=== PATIENT | male | born 1975 | race Hispanic/Latino ===

== ENCOUNTER 2016-07-10 10:11 | Day surgery (SDC) | payer OTHER ==
[2016-07-10] MEDS ORDERED: 1/2 NS 500 ML ONE (10:47)
[2016-07-10 12:56] LABS: HEMATOCRIT 29.6 % (42.0-52.0); HEMOGLOBIN 9.3 g/dL (14.0-18.0); MCH 30.4 PG (27-31); MCHC 31.4 g/dL (33-37); MCV 96.7 FL (81-99); MPV 8.2 FL (7.4-10.4); RBC 3.06 XMIL (4.7-6.1)
[2016-07-10 13:07] LABS: CALCIUM 9.2 mg/dL (8.8-10.2); POTASSIUM 4.7 mmol/L (3.5-5.1)
[2016-07-10] MEDS ORDERED: D50W SYRINGE ONE ×2 (13:37→16:41)
[2016-07-10] MEDS: KEFZOL 1 GM/D5W 50 ML ONE ×2 (13:43→14:43)
[2016-07-10] MEDS ORDERED: KEFZOL ONE (14:27)
[2016-07-10] MEDS ORDERED: HEPARIN ONE (14:27)
[2016-07-10] MEDS ORDERED: XYLOCAINE 1%/EPI 1:100,000 ONE (14:27)
[2016-07-10] MEDS ORDERED: NS 1,000 ML ONE ×2 (14:27→14:29)
--- NOTE | 2016-07-10 14:33 | EKG Report ---
Test Performed on : 07/10/2016 10:43:48 AM Test Reason : PER DR ORDER Blood Pressure : / mmHG Vent. Rate : 077 BPM Atrial Rate : 077 BPM P-R Int : 180 ms QRS Dur : 094 ms QT Int : 402 ms P-R-T Axes : 070 034 064 degrees QTc Int : 454 ms Normal sinus rhythm. Normal ECG When compared with ECG of 19-MAR-2016 09:18, No significant change was found Confirmed by Nimesh Murillo MD ([id number]) on 07/11/2016 9:43:06 PM
[2016-07-10] MEDS ORDERED: DIPRIVAN 1% ONE (16:57)
[2016-07-10] MEDS ORDERED: FENTANYL ONE (16:57)
[2016-07-10] MEDS ORDERED: NORCO-5 PO PRN (17:45)
[2016-07-10 18:24] VITALS: BP 109/67
--- NOTE | 2016-07-10 22:53 | OPERATIVE NOTE ---
PROCEDURE DATE: 07/10/2016 PROCEDURE PERFORMED: 1. Construction of translocated right brachiocephalic arteriovenous fistula . 2. Excisional debridement right lateral malleolar ulcer skin and subcutaneous tissue 1 x 1.5 cm. 3. Excisional debridement right heel ulcer (skin and subcutaneous tissue; 5x5cm) SURGEON: Daniel Ro MD. POWERHOUSE ELECTRICIAN APPRENTICE: Iram Alexander. PREOP DIAGNOSES: 1. Chronic kidney disease 5. 2. Right heel and ankle decubitus. POSTOP DIAGNOSES: 1. Chronic kidney disease 5. 2. Right heel and ankle decubitus. DESCRIPTION OF PROCEDURE: Satisfactory general anesthesia achieved. Right arm was prepped and draped in a sterile fashion. We made a curvilinear incision above the antecubital crease. We dissected down to the brachial artery, it was noted to be red the diseased. We identified the cephalic vein that comes into the antecubital fossa. We gave the patient 3000 units of heparin systemically. We surrounded the artery proximally and distally with vessel loops. We ligated the vein at a branch in the antecubital fossa and transected the branches. We then opened the vein through the branches to spatulate it. We mobilized and swung it over to the artery. We then incised the artery with 11 blade and extended slightly with the Soto scissors. We used a 3-1/2 punch. We then constructed the anastomosis using 7-0 Prolene stitches under 2.5 loupe magnification. Flow was established into the fistula and a thrill was palpated. Hemostasis was satisfactory. We then closed the subcutaneous tissue with interrupted 3-0 Polysorb. The skin was closed with a 4-0 Polysorb subcuticular stitch. Sterile OpSite dressing was applied. We then turned our attention to the right foot. We prepped and draped it in a sterile fashion. We sharply excised the skin and subcutaneous tissue eschar from the right lateral malleolus. It measured 1 x 1.5 cm. The heel ulcer was then excised to viable subcutaneous tissues so we excised skin and subcutaneous tissue to the extent of 5 x 5 cm. The heel bled satisfactorily, the ankle did not. There was also ulceration on the dorsum of the ankle but did not require debridement. We then achieved satisfactory hemostasis electrocautery on the heel and then placed DuoDERM on the wounds to keep it moist. We then wrapped that with a Kerlix. She tolerated the procedure satisfactorily, sent to the recovery room in satisfactory condition. MTDD
[2016-07-11] MEDS ORDERED: NEO-SYNEPHRINE ONE (09:56)
[2016-07-11] MEDS ORDERED: ZOFRAN ONE (09:56)
[2016-07-11] MEDS ORDERED: HEPARIN ONE (09:56)
[2016-07-11] MEDS ORDERED: SODIUM CHLORIDE 0.9% 20 ML ONE (09:56)
[2016-07-11] MEDS ORDERED: PIGGYBACK SET 7393 ONE (09:57)
[2016-07-11] MEDS ORDERED: NS 250 ML ONE (09:57)
[2016-07-11] MEDS ORDERED: ROBINUL ONE (09:57)
== END 2016-07-10 18:05 ==
LOC: OR 10:11
PROVIDERS: ATTEND Surgery
DX: I12.0 Hypertensive chronic kidney disease with stage 5 chronic kidney disease or end stage renal disease (principal); N18.5 Chronic kidney disease, stage 5; L89.519 Pressure ulcer of right ankle, unspecified stage; L89.619 Pressure ulcer of right heel, unspecified stage; Z89.422 Acquired absence of other left toe(s); I69.991 Dysphagia following unspecified cerebrovascular disease; I69.951 Hemiplegia and hemiparesis following unspecified cerebrovascular disease affecting right dominant side
CPT/HCPCS: 80048; 82948; 85027; 93005; 93010; J0690; J1644; J2370; J2405; J3010; J7030; J7050

== ENCOUNTER 2016-08-31 12:30 | Inpatient (IN) ==
[2016-08-31 10:59] LABS: HEMATOCRIT 32.8 % (42.0-52.0); HEMOGLOBIN 10.2 g/dL (14.0-18.0); MCH 29.7 PG (27-31); MCHC 31.1 g/dL (33-37); MCV 95.6 FL (81-99); MPV 8.6 FL (7.4-10.4); RBC 3.43 XMIL (4.7-6.1)
[2016-08-31 11:12] LABS: CALCIUM 8.6 mg/dL (8.8-10.2); POTASSIUM 2.9 mmol/L (3.5-5.1)
[~2016-08-31 12:30] MED LIST: 1/2 NS 500 ML ONE; KEFZOL 1 GM/D5W 1 GM/50 ML IVPB ONE
[2016-08-31] MEDS: MORPHINE ONE ×2 (13:32→14:55)
[2016-08-31] MEDS ORDERED: DIPRIVAN 1% ONE (13:32)
[2016-08-31] MEDS ORDERED: XYLOCAINE-MPF 2% ONE (13:50)
[2016-08-31] MEDS ORDERED: NUT TX IMPAIRED RENAL FXN SOY PEG SCH (15:27)
[2016-08-31] MEDS ORDERED: ZOFRAN IV PRN (15:27)
[2016-08-31] MEDS ORDERED: BLISTEX MEDICATED BERRY LIP BALM TOP PRN (15:27)
[2016-08-31] MEDS ORDERED: TYLENOL PO PRN (15:56)
[2016-08-31] MEDS ORDERED: DUONEB (A & A) INH PRN (16:01)
--- NOTE | 2016-08-31 16:22 | EKG Report ---
Test Performed on : 08/31/2016 4:06:55 PM Test Reason : tachycardia Blood Pressure : / mmHG Vent. Rate : 080 BPM Atrial Rate : 080 BPM P-R Int : 162 ms QRS Dur : 088 ms QT Int : 392 ms P-R-T Axes : 082 087 081 degrees QTc Int : 452 ms Normal sinus rhythm. Normal ECG When compared with ECG of 10-JUL-2016 10:43, No significant change was found Confirmed by Annemarie ROBERTS, Imtiaz Jorgensen ([id number]) on 09/02/2016 2:11:34 PM
--- NOTE | 2016-08-31 16:44 | OPERATIVE NOTE ---
PROCEDURE DATE: 08/31/2016 PROCEDURE: Excisional debridement infected right below-knee stump including skin, subcutaneous fat and muscle greater than 20 square centimeters. SURGEON: Daniel Ro MD. FELT TIPPING MACHINE TENDER: Taarh. PREOPERATIVE DIAGNOSIS: Infected right below-knee stump. POSTOPERATIVE DIAGNOSIS: Infected right below-knee stump. DESCRIPTION OF PROCEDURE: Satisfactory general anesthesia was achieved. The right stump was prepped and draped in a sterile fashion. We had taken the polina out prior to prepping and draping the stump. We sharply debrided the skin. We also debrided the subcutaneous fat and the right muscle or necrotic muscle in the posterior flap. We continued to debride that and remove the infarcted tissue until we got back to what appeared to be viable tissue. The tibia was exposed with the debridement. It became evident that he probably would not be able to heal this. So, we simply after debriding back to viable tissue throughout the extent of the wound which is probably 8 x 5 cm, we then packed it with Betadine-impregnated gauze followed by sterile 4 x 4s, followed by Kerlix, followed by a 6 inch LUCRECIA. She tolerated it well. Was sent to the recovery room in satisfactory condition. cc: Daniel Ro MD
[2016-08-31] MEDS ORDERED: KLOR-CON PO ONE (16:46)
--- NOTE | 2016-08-31 17:15 | Diag Imaging Result Document ---
PROCEDURE NAME: CHEST-PORTABLE - 08/31/2016 PORTABLE CHEST X-RAY: COMPARISON: 04/20/2016. FINDINGS: There is a left-sided dialysis catheter in good position with the distal tip at the cavoatrial junction. There is some strandy atelectasis in the lung bases. No significant infiltrates. No pneumothorax or large effusion. Heart size is grossly normal. IMPRESSION: No acute disease.
[2016-08-31] MEDS: HUMULIN R SUBQ SCH ×2 (17:46→21:07)
[2016-08-31] MEDS ORDERED: KEFZOL 1 GM in NS 50 ML IV SCH ×2 (18:00→19:30)
--- NOTE | 2016-08-31 20:04 | CONSULTATION ---
DATE OF CONSULTATION: 08/31/2016 REASON FOR ADMISSION: I and D of right below the knee amputation performed on 08/01/2016. REASON FOR CONSULTATION: Assistance with end-stage renal disease and medical management. CONSULTING PHYSICIAN: Daniel Ro MD. HISTORY OF PRESENT ILLNESS: Mr. Womack is a 41-year-old, white male who is actually known to our outpatient services for hemodialysis at the [facility]. The patient has been transferred home after being in a [facility] during his last hospitalization. On 08/01/2016, the patient had a right fvtwl-zok-kuyu amputation per Dr. Ro. This has not been healing well and he had an I and D performed today. The patient denies any chest pain. No increased work of breathing. He has no nausea or vomiting. No diarrhea. He does have pain to his right lower extremity and trace swelling is noted. No fever or chills. PAST MEDICAL HISTORY: End-stage renal disease with hemodialysis at the [facility] on Sunday, Sunday, Sunday. Multiple sclerosis. Cerebrovascular accident with left- sided weakness. Hypertension. Gastroesophageal reflux disease. History of ischemic extremity on the left status post left BKA in 2016, right BKA in 2017. History of nicotine dependence. Diabetes mellitus type 2. Hip fracture approximately 1 year ago. PAST SURGICAL HISTORY: Hip fracture repair to the left. Left below the knee amputation in 2015. 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 Bilateral corneal transplant. PEG tube placement x2. SOCIAL HISTORY: Patient is , he lives with his spouse. He is back in the [place] area. He denies alcohol or illicit drug use. He continues to smoke with the assistance of his family. PAST MEDICAL HISTORY: Negative for renal disease. CURRENT ALLERGIES: No known drug allergies. HOME MEDICATIONS: Listed as Lipitor, citalopram, Tresiba FlexTouch, losartan, [place], Rocaltrol, Ferrlecit, Aranesp, IV iron as indicated at the outpatient clinic. REVIEW OF SYSTEMS: Review of systems x 10 with pertinent positives listed above in the HPI. MOST RECENT VITAL SIGNS: Temperature 97.7 degrees, blood pressure 131/72, heart rate 88, respirations 18, he is on room air, last recorded saturation is 99%. He has had 100 in, he has had estimated blood loss of 2, otherwise no void with dialysis assist. LABS: Sodium of 136, potassium 2.9, chloride 92, CO2 30, BUN 9, creatinine 1.9 , glucose 180, anion gap 14, calcium 8.6, white count 11.91, hemoglobin 10.2, hematocrit 32.8 with a platelet count of 492,000. Patient has anaerobic and Gram stain cultures of his I and D to the right BKA currently pending. PHYSICAL EXAMINATION: General: This is a 41-year-old, white male who appears chronically ill, in no acute distress. Skin: Warm and dry. HEENT: Normocephalic, atraumatic. Conjunctivae pale, ALAN. Mucous membranes are dry. Neck: Supple. Trachea midline. No JVD. Cardiovascular: Regular rate and rhythm. He has a soft murmur noted otherwise no gallop. Lungs : Clear to auscultation anteriorly, equal excursion on O2. Abdomen: Round, soft, nontender. Positive PEG tube to the left lower quadrant. This is dry and intact, currently clamped. Genitourinary: Not inspected. Minimal void with dialysis assist. The patient is currently wearing an adult diaper. Extremities: He has a dressing to the right BKA, no edema is present. The left is dry and intact. His hands currently have nonhealing wounds with some eschar noted to his right hand on the middle 3 fingers, no drainage present. Neurological: He is alert and oriented x2. ASSESSMENT AND PLAN: 1. End-stage renal disease. Patient is due for his routine dialysis treatment in the a.m. 2. Electrolytes. Patient has hypokalemia. We will order replacement therapy this evening with correction on dialysis in the morning and repeat labs. 3. Acid-base balance and anemia. These are stable. 4. Status postop day #1 for I and D to right below knee amputation. This is followed by Dr. Ro. He is on renal dosed antibiotics. I would like to thank you for allowing us to follow with this patient. Data reviewed, discussed with Abrahan Ortega on 08/31/16. I agree with the above assessment and plan of care. rg Dictated by MEGAN Kruse for Xander Montero MD cc: MEGAN Kruse MD Robert C. Walker, MD [facility] VALLEY HOSPITALFredy
[2016-08-31] MEDS: PERIDEX MT SCH (20:58)
[2016-08-31] MEDS: HUMULIN N SUBQ SCH (21:08)
[2016-08-31] MEDS: NORCO-10 PO PRN (21:08)
[2016-09-01 06:35] LABS: MANUAL DIFF NEEDED? NO
[2016-09-01 06:38] LABS: BASO% 0.3 % (0.0-0.8); EOS# 0.18 X1000 (0.0-0.7); HEMATOCRIT 31.1 % (42.0-52.0); HEMOGLOBIN 9.4 g/dL (14.0-18.0); LYMPH# 1.56 X1000 (1.2-3.4); LYMPH% 17.3 % (20.5-51.1); MCH 29.1 PG (27-31); MCHC 30.2 g/dL (33-37); MCV 96.3 FL (81-99); MONO# 1.16 X1000 (0.11-0.59); MONO% 12.8 % (1.7-9.3); MPV 8.5 FL (7.4-10.4); NEUT% 67.6 % (42.2-75.2); PLT 520 X1000 (130-400); RBC 3.23 XMIL (4.7-6.1)
[2016-09-01] MEDS: PROTONIX IV SCH (06:46)
[2016-09-01] MEDS: HUMULIN R SUBQ SCH ×4 (06:47→21:38)
[2016-09-01 06:59] LABS: ALBUMIN 2.6 g/dL (3.5-5.0); CALCIUM 8.7 mg/dL (8.8-10.2); POTASSIUM 4.3 mmol/L (3.5-5.1)
[2016-09-01] MEDS ORDERED: HEPARIN IV PRN (07:00)
[2016-09-01] MEDS ORDERED: NS 2,000 ML MISC PRN (07:00)
[2016-09-01] MEDS ORDERED: TIGHT: 0.2 ML/HR MISC PRN (07:00)
[2016-09-01] MEDS ORDERED: HEPARIN ONE (08:53)
[2016-09-01] MEDS ORDERED: NS 2,000 ML ONE (08:53)
[2016-09-01] MEDS ORDERED: KEFZOL 1 GM in NS 50 ML IV SCH (09:00)
[2016-09-01] MEDS ORDERED: NON-FORMULARY BULK MED PEG SCH (09:00)
[2016-09-01] MEDS: VANCOMYCIN 1 GM/NS 1 GM/250 ML IVPB IV SCH (12:54)
--- NOTE | 2016-09-01 13:52 | PROGRESS NOTE ---
DATE: 09/01/2016 SUBJECTIVE: Patient currently undergoing hemodialysis. He is in no acute distress. OBJECTIVE: Vital signs: Temperature 98.4 degrees, pulse 74, respiratory rate 18, blood pressure 125/64, intake 220 mL, output 150 mL. General: Middle-aged gentleman resting in bed. He appears older than stated age, chronically ill-appearing. HEENT: Normocephalic , atraumatic. Oral mucosa moist. Neck: Supple. Trachea midline. Cardiovascular: Regular rate and rhythm. Systolic murmur noted. Pulmonary: Equal excursion. He is clear bilaterally. Abdomen: Is soft, flat positive bowel sounds with a PEG. Extremities: Dressing right BKA, no edema. Left BKA noted, no drainage, no wound. Neuro: Awake and alert. LAB DATA: WBC of 9.0, hemoglobin 9.4. Sodium 136, potassium 4.3, CO2 28, BUN 16, creatinine 2.5. ASSESSMENT AND PLAN: 1. End-stage renal disease management. Today is his routine dialysis day. He is dialyzing on a 2 K bath with a ultrafiltration goal of 2.1 L. Continue his routine treatment while in the hospital. 2. Electrolytes, acid-base balance, addressed dialysis. 3. Anemia stable. 4. Status post incision and drainage right below-knee amputation followed by primary and surgery. 5. Will consult palliative care for goals assessment. Seen, data reviewed, discussed with Fahad Feldman on 09/01/16. I agree with the above assessment and plan of care. rg Dictated by MEGAN Todd for Xander Montero MD cc: MD Carrie Kerr MD MTDD
[2016-09-01] MEDS: HUMULIN N SUBQ SCH ×2 (16:03→21:37)
[2016-09-01] MEDS: PERIDEX MT SCH ×2 (16:04→20:32)
--- NOTE | 2016-09-01 16:06 | CONSULTATION ---
DATE OF CONSULTATION: 09/01/2016 REASON FOR CONSULTATION: Management of diabetes mellitus. CONSULTING PHYSICIAN: Dr. Daniel Ro HISTORY OF PRESENT ILLNESS: Mr. Womack is a 41-year-old male with a history of end-stage renal disease on hemodialysis, multiple sclerosis, history of CVA, and a recent right zbyca-ztr-xbay amputation performed last month. He was admitted today to undergo I and D of the right below-the- knee amputation site. The patient is doing well following the procedure. He currently denies having any pain at this time. He also denies having chest pain, shortness of breath, headache or dizziness. He denies having any GI complaints. He is currently being dialyzed at this time. PAST MEDICAL HISTORY: 1. End-stage renal disease on hemodialysis. Sunday, Sunday, and Sunday. 2. GERD. 3. Multiple sclerosis. 4. History of cerebrovascular accident with left hemiparesis. 5. Hypertension. 6. Diabetes mellitus type 2. 7. Tobacco dependence. 8. Peripheral artery disease. PAST SURGICAL HISTORY: 1. Right uzkem-yoj-vwbv amputation performed on 08/01/2016. 2. Left mckhh-mrd-ocrr amputation in 2015. 3. PEG tube placement x2. 4. Bilateral corneal transplant. 5. Left hip repair. FAMILY HISTORY: Noncontributory. SOCIAL HISTORY: The patient is and lives at home with his . The patient does smoke cigarettes. He denies alcohol or illicit drug use. ALLERGIES: No known drug allergies. HOME MEDICATIONS: 1. Humalog before meals. 2. NPH 20 units subcutaneous twice a day. 3. Multivitamin 5 mg via PEG daily. REVIEW OF SYSTEMS: All other review of systems are negative. Please refer to the history of present illness for pertinent positives and negatives. PHYSICAL EXAMINATION: Vital Signs: Temperature 98.3 degrees, blood pressure 129/82, heart rate 68, respirations 16, O2 saturations 97% on room air. General: This is a chronically ill- appearing male, sitting in bed, in no acute distress. Head: Normocephalic, atraumatic. Neck: Supple. No JVD. No lymphadenopathy. Heart: S1, S2 normal. Regular rate and rhythm. Lungs: Clear to auscultation bilaterally. No wheezing. No rales. No rhonchi. Abdomen: Positive bowel sounds. Soft, nontender, nondistended. Extremities: Right asljv-qso-lwca amputation site is wrapped in a dressing. The left BKA site is clean and dry. Neurologic: The patient is alert and oriented x2. LABORATORY DATA: White blood cell count 9, hemoglobin 9.4, hematocrit 31, platelets 520,000. Sodium 136, potassium 4.3, chloride 97, CO2 28, BUN 16, creatinine 2.5, glucose 101, calcium 8.7, albumin 2.6. Chest x-ray, no acute disease. ASSESSMENT AND PLAN: 1. Status post excisional debridement of infected right wzjaa-tgx-cylo amputation stump. The patient is on IV antibiotics. Further management as per the general surgeon. 2. End-stage renal disease. The patient is being dialyzed today. 3. Uncontrolled insulin-dependent diabetes mellitus. The patient was noted to be hypoglycemic this morning with a blood sugar of 39. We will need to monitor the patient' s blood sugars closely. He is currently on NPH 20 units twice a day. 4. Hypertension. Controlled. 5. History of cerebrovascular accident. Aware. 6. GI prophylaxis. Continue on Protonix. 7. Anemia of chronic disease. The patient's hemoglobin and hematocrit are stable. cc: MD Daniel Pavon MD MTDD
[2016-09-01] MEDS: BUPRENEX IV PRN (20:32)
[2016-09-01] MEDS: NORCO-10 PO PRN (21:37)
[2016-09-02] MEDS: NORCO-10 PO PRN ×2 (03:22→09:15)
[2016-09-02] MEDS: PROTONIX IV SCH (06:05)
[2016-09-02] MEDS: HUMULIN R SUBQ SCH ×4 (06:05→20:53)
[2016-09-02 06:37] LABS: MANUAL DIFF NEEDED? NO
[2016-09-02 06:48] LABS: BASO% 0.2 % (0.0-0.8); EOS# 0.17 X1000 (0.0-0.7); EOS% 1.9 % (0.0-10.0); HEMATOCRIT 31.1 % (42.0-52.0); HEMOGLOBIN 9.3 g/dL (14.0-18.0); IMM GRAN# 0.04 X1000 (0.0-0.04); IMM GRAN% 0.5 % (0.0-0.5); LYMPH# 1.49 X1000 (1.2-3.4); MCH 29.3 PG (27-31); MCHC 29.9 g/dL (33-37); MCV 98.1 FL (81-99); MONO# 1.04 X1000 (0.11-0.59); MONO% 11.9 % (1.7-9.3); MPV 8.5 FL (7.4-10.4); NEUT% 68.5 % (42.2-75.2); PLT 522 X1000 (130-400); RBC 3.17 XMIL (4.7-6.1)
[2016-09-02 07:06] LABS: ALBUMIN 2.6 g/dL (3.5-5.0); CALCIUM 8.5 mg/dL (8.8-10.2); POTASSIUM 3.8 mmol/L (3.5-5.1)
[2016-09-02] MEDS: PERIDEX MT SCH ×2 (09:08→20:54)
[2016-09-02] MEDS: HUMULIN N SUBQ SCH ×2 (09:10→20:52)
--- NOTE | 2016-09-02 14:00 | PROGRESS NOTE ---
DATE: 09/02/2016 SUBJECTIVE: Patient resting in bed. He underwent dialysis yesterday without difficulty. OBJECTIVE: Vital Signs: Temperature 97.6 degrees, pulse 63, respiratory rate 18, blood pressure 122/52, intake not measured, output 2.6 L on dialysis. PHYSICAL EXAMINATION: General: Chronically ill-appearing middle-aged gentleman resting in bed. He is awake and alert. HEENT: Normocephalic, atraumatic. Oral mucosa moist. Neck: Supple. Trachea midline. Cardiovascular: Regular rate and rhythm with a systolic murmur. Pulmonary: Equal excursion. He is clear bilaterally. Abdomen: Soft, positive bowel sounds and a PEG tube noted. Extremities: Right BKA with a dressing. No drainage noted. Left BKA old wound healed. Integumentary: Skin is warm and dry otherwise. LAB DATA: WBC of 8.7, hemoglobin 9.3, sodium 142, potassium 3.8, CO2 29, BUN 11 , creatinine 1.9, calcium 8.5, phosphorus 3.1, albumin 2.6. ASSESSMENT AND PLAN: 1. End-stage renal disease management. He had his routine dialysis yesterday. 2.6 L removed. He tolerated dialysis well. Will plan to keep him on his regular schedule while he is in the hospital. 2. Electrolytes, acid-base balance, anemia. These are all stable. Continue to treat with dialysis. 3. Status post incision and drainage right below-knee amputation followed by primary and surgery. There is some question as far as additional therapy that he may need for this. Continue to follow along and assist where we can. Dictated by MEGAN Todd for Xander Montero MD Data reviewed, discussed with Vicky on 09/02/16. I agree with the above assessment and plan of care. cc: MD Carrie Kerr MD MTDD
--- NOTE | 2016-09-02 14:26 | PROGRESS NOTE ---
DATE: 09/02/2016 SUBJECTIVE: The patient is resting comfortably in bed. His blood sugars remain very labile. OBJECTIVE: Vital signs: Temperature 98.1, blood pressure 120/55, heart rate 75 , respirations 18. O2 saturation is 97% on room air. General: This is a middle-aged male lying in bed in no acute distress. Head: Normocephalic, atraumatic. Heart: S1, S2 normal. Regular rate and rhythm. Lungs: Clear to auscultation bilaterally. No wheezing. No rales. No rhonchi. Abdomen: Positive bowel sounds, soft, nontender, nondistended. The PEG tube appears to be in place. Extremities: The right BKA stump is wrapped in a clean, dry dressing. Neurologic: The patient is awake and alert. LABORATORY: White blood cell count 8.7, hemoglobin 9.3, hematocrit 31, platelets 522, sodium 142, potassium 3.8, chloride 102, CO2 29, BUN 11, creatinine 1.9, glucose 63. ASSESSMENT AND PLAN: 1. Methicillin-resistant Staphylococcus aureus of the right below-knee amputation stump, status post I & D. The patient is on vancomycin. Continue with wound care as per the general surgeon. 2. Uncontrolled insulin-dependent diabetes mellitus. The patient's blood sugars have been very labile. Will try and advance the patient's diet. Will continue to adjust the patient's insulin. 3. End-stage renal disease. Management as per the manager style. 4. Hypertension. Controlled. 5. Anemia of chronic disease. The patient's hemoglobin and hematocrit are stable. 6. Severe protein calorie malnutrition. We will consult the dietitian. cc: Carrie Noel MD MTDD
[2016-09-03] MEDS: SODIUM CHLORIDE 0.9% INJ SCH (06:14)
[2016-09-03] MEDS: PROTONIX IV SCH (06:14)
[2016-09-03 06:47] LABS: HEMATOCRIT 29.9 % (42.0-52.0); HEMOGLOBIN 8.9 g/dL (14.0-18.0); MCH 28.9 PG (27-31); MCHC 29.8 g/dL (33-37); MCV 97.1 FL (81-99); MPV 8.5 FL (7.4-10.4); RBC 3.08 XMIL (4.7-6.1)
[2016-09-03 07:25] LABS: ALBUMIN 2.6 g/dL (3.5-5.0); CALCIUM 8.6 mg/dL (8.8-10.2); POTASSIUM 5.1 mmol/L (3.5-5.1)
[2016-09-03] MEDS: HUMULIN R SUBQ SCH ×4 (08:14→20:38)
[2016-09-03] MEDS: HUMULIN N SUBQ SCH ×2 (10:47→20:37)
[2016-09-03] MEDS: PERIDEX MT SCH ×2 (10:48→20:38)
--- NOTE | 2016-09-03 14:17 | PROGRESS NOTE ---
DATE: 09/03/2016 SUBJECTIVE: No acute events noted overnight. The patient has no complaints at this time. He states that he is hungry. OBJECTIVE: Vital Signs: Temperature 97.6, degrees, blood pressure 148/77, heart rate 83, respirations 16, O2 saturations 97% on room air. General: This is a middle- aged male sitting up in bed in no acute distress. Head: Normocephalic, atraumatic. Heart: S1, S2. Normal. Regular rate and rhythm. Lungs: Clear to auscultation bilaterally. No wheezes, no rales. No rhonchi. Abdomen: Positive bowel sounds. Soft, nontender, nondistended. Extremities: The right below- the-knee amputation stump is clean, dry and intact with a dressing in place. Neurologic: The patient is alert and oriented x3. LABS: White blood cell count 11, hemoglobin 8.9, hematocrit 29, platelets 533, 000. Sodium 133, potassium 5.1, chloride 95, CO2 28, BUN 18, creatinine 1.9, glucose 95, albumin 2.6. ASSESSMENT AND PLAN: 1. Methicillin-resistant Staphylococcus aureus of the right fhdnh-zlr-ptyf amputation stump status post excisional debridement. Continue on vancomycin as directed by the general surgeon. Continue with wound care. 2. Leukocytosis. Continue on antibiotic therapy. 3. End-stage renal disease. Management as per the grain sacker. 4. Uncontrolled insulin-dependent diabetes mellitus type 2. Continue on NPH plus sliding scale insulin coverage. 5. Hypertension. Controlled. 6. Anemia of chronic disease. The patient's hemoglobin and hematocrit are stable. 7. Severe protein calorie malnutrition. Continue on Nepro shakes. cc: Carrie Noel MD MTDD
[2016-09-04] MEDS: SODIUM CHLORIDE 0.9% INJ SCH (06:11)
[2016-09-04] MEDS: PROTONIX IV SCH (06:11)
[2016-09-04 07:16] LABS: BASO% 0.2 % (0.0-0.8); EOS# 0.97 X1000 (0.0-0.7); EOS% 9.1 % (0.0-10.0); HEMATOCRIT 29.6 % (42.0-52.0); HEMOGLOBIN 9.3 g/dL (14.0-18.0); IMM GRAN% 0.9 % (0.0-0.5); LYMPH# 1.25 X1000 (1.2-3.4); LYMPH% 11.7 % (20.5-51.1); MANUAL DIFF NEEDED? NO; MCH 29.9 PG (27-31); MCHC 31.4 g/dL (33-37); MCV 95.2 FL (81-99); MONO# 0.83 X1000 (0.11-0.59); MONO% 7.8 % (1.7-9.3); MPV 9.6 FL (7.4-10.4); NEUT% 70.3 % (42.2-75.2); PLT 481 X1000 (130-400); RBC 3.11 XMIL (4.7-6.1)
[2016-09-04] MEDS: HUMULIN R SUBQ SCH ×3 (07:31→20:52)
[2016-09-04 07:36] LABS: ALBUMIN 2.1 g/dL (3.5-5.0); CALCIUM 8.6 mg/dL (8.8-10.2); POTASSIUM 5.5 mmol/L (3.5-5.1)
--- NOTE | 2016-09-04 08:31 | Diag Imaging Result Document ---
PROCEDURE NAME: CHEST-PORTABLE - 09/04/2016 AP PORTABLE CHEST, 09/04/2016 AT 0500 HOURS: FINDINGS: There is a double-lumen catheter in the left internal jugular with its tip in the right atrium. There is some minimal subsegmental atelectasis in the lung bases particularly the right lower lobe. The heart size and pulmonary vascularity are within normal limits. There is a fracture of the distal left clavicle and apparent healing fractures of multiple ribs on the left. Compared to 08/31/2016 the degree of atelectasis in the right lower lobe may be slightly worse. IMPRESSION: Minimal basilar atelectasis.
[2016-09-04] MEDS: HUMULIN N SUBQ SCH (09:48)
[2016-09-04] MEDS: PERIDEX MT SCH ×2 (09:48→20:53)
--- NOTE | 2016-09-04 10:11 | PROGRESS NOTE ---
DATE: 09/04/2016 SUBJECTIVE: Patient is sitting up in a chair. She has been able to eat breakfast without difficulty this morning. OBJECTIVE: Vital Signs: Temperature 98.4 degrees, pulse 82, respiratory rate 17, blood pressure 135/86. Intake 1.2 L. Output 1.3 L. PHYSICAL EXAMINATION: General: Chronically ill-appearing middle-aged gentleman sitting up in a chair. He is awake and alert and conversant this morning. HEENT: Normocephalic, atraumatic. Oral mucosa moist. Neck: Supple. Trachea midline. There is no jugular venous distention. Cardiovascular: Regular rate and rhythm with a systolic murmur. Pulmonary: He has equal excursion. He is clear bilaterally on room air. Abdomen: Soft with positive bowel sounds. PEG tube noted. Extremities: The right below the knee amputation with a dressing. Left below the knee amputation intact. No edema. Moving extremities. Skin: Pale, warm, and dry otherwise. LAB DATA: WBC of 10.6, hemoglobin 9.3, hematocrit 29.6, and platelet count of 481,000. Sodium 131, potassium 5.5. CO2 of 23, BUN 30, creatinine 2.1. Calcium 8.6, albumin 2.1, and phosphorus 2.9. ASSESSMENT AND PLAN: 1. End-stage renal disease. His routine dialysis days are Sunday, Sunday, and Fridays. We will plan to dialyze him today on a 2 K bath/ultrafiltration as tolerated or dry weight, 4 hour treatment. Use his fistula today. rg 2. Electrolytes, acid-base balance, anemia. These are stable. Continue to address appropriately with dialysis. 3. Right below the knee amputation, status post incision and drainage. The patient states that this is suppose to be reviewed to a right above the knee amputation. Unsure and this will take place. We will continue to follow up. Seen, data reviewed, discussed with Fahad Feldman on 09/04/16. I agree with the above assessment and plan of care. rg Dictated by MEGAN Todd for Xander Montero MD cc: MD Jewel Kerr MD [facility]
[2016-09-04] MEDS ORDERED: NS 2,000 ML ONE (12:18)
[2016-09-04] MEDS ORDERED: HEPARIN ONE (12:18)
[2016-09-04] MEDS ORDERED: TIGHT: 0.2 ML/HR MISC PRN (14:15)
[2016-09-04] MEDS ORDERED: NS 2,000 ML MISC PRN (14:15)
[2016-09-04] MEDS ORDERED: HEPARIN IV PRN (14:15)
[2016-09-04] MEDS: LANTUS SUBQ SCH (15:30)
--- NOTE | 2016-09-04 18:43 | PROGRESS NOTE ---
DATE: 09/04/2016 SUBJECTIVE: Patient reports feeling fine. No acute issues overnight as per nursing staff. OBJECTIVE: Vital Signs: Temperature 98.6 degrees, heart rate 92, respiratory rate 17, respiratory rate 20, blood pressure 131/77. O2 saturation 97% on room air. General: This is a 41-year-old male lying in bed, in no acute distress. HEENT: Head is normocephalic, atraumatic. Anicteric sclerae and pale conjunctivae. Mucous membranes moist. Neck: Supple. No JVD noted. No carotid bruits. Cardiovascular: S1, S2 heard. No murmurs, gallops, or rubs. Regular rate and rhythm. Respiratory: Clear bilaterally to auscultation. No work of breathing or using accessory muscles. Abdomen: Soft, nontender to palpation. Bowel sounds present. No organomegaly. Extremity: No clubbing, cyanosis, or edema. Peripheral pulses present in left leg. Right irkan-yzk-idce amputation noted with dressing in place, clean and dry. Neurological: Patient alert and oriented x3. Moves 4 extremities. LABORATORY DATA: Reviewed. ASSESSMENT AND PLAN: 1. Methicillin-resistant Staphylococcus aureus Staph aureus of the right wrgqi-dcj-eyef amputation stump, status post excision and debridement. Continue with vancomycin as directed by Dr. Ro. 2. End-stage renal disease on hemodialysis. Dr. Montero is following with this patient. 3. Uncontrolled diabetes mellitus, type 2. Patient glucose has been up and down and I prefer just to have a better controlled diabetes to use basal insulin, in this case, Lantus. We are going to start 12 units of Lantus daily and also we will continue with sliding scale insulin. We will keep checking Accu-Cheks before meals and also at bedtime. 4. Hypertension, well controlled. We will continue with the same management. 5. Anemia of chronic disease. The patient hemoglobin and hematocrit are stable. 6. Severe protein calorie malnutrition. We will continue with Julita pimentel. cc: Jewel Walden MD
[2016-09-05] MEDS: SODIUM CHLORIDE 0.9% INJ SCH (06:21)
[2016-09-05] MEDS: PROTONIX IV SCH (06:21)
[2016-09-05] MEDS: HUMULIN R SUBQ SCH ×2 (06:23→21:16)
[2016-09-05] MEDS: LANTUS SUBQ SCH (09:08)
[2016-09-05] MEDS: PERIDEX MT SCH ×2 (09:11→21:12)
--- NOTE | 2016-09-05 13:05 | PROGRESS NOTE ---
DATE: 09/05/2016 SUBJECTIVE: Patient is sitting in bed. He is waiting to go to surgery later on today. OBJECTIVE: Vital Signs: Temperature 98.6 degrees, pulse 83, respiratory rate 16, blood pressure 120/69. Intake 240 mL. Output 2.3 L. General: This is a chronically ill- appearing, middle-aged gentleman resting in bed. He is awake and alert. HEENT: Normocephalic, atraumatic. Oral mucosa moist. Dentition poor. Tongue is midline. Neck: Supple. Trachea midline without JVD noted. Cardiovascular: Reveals a regular rate and rhythm with a systolic murmur. Pulmonary: He has equal excursion. He is clear bilaterally. He is on room air. He has no increased work of breathing. Abdomen: Soft, flat. Positive bowel sounds. He has a PEG tube noted. : Not inspected. Minimal void with hemodialysis assist. Extremities: Right BKA with dressing noted. Left BKA, old incisions are healed. Moving all extremities. No clubbing, cyanosis, or edema. Skin: Pale, warm and dry. LABORATORY DATA: No labs today. ASSESSMENT AND PLAN: 1. End-stage renal disease management. The patient underwent dialysis yesterday without difficulty. We will continue his Sunday, Sunday, Sunday schedule while he remains in the hospital. 2. Right ubmwx-ccz-wkiu amputation status post incision and drainage. Appears the patient is to go to surgery today for a right AKA. Continue to follow. Continue dialysis. 3. Dialysis access. Fistula infiltrated extensively yesterday after cannulation. Will use his catheter for his next treatment. rg Seen, data reviewed, discussed with Fahad Feldman on 09/06/15. I agree with the above assessment and plan care. rg Dictated by MEGAN Todd for Xander Montero MD cc: MD Jewel Kerr MD [facility]
[2016-09-05 13:37] LABS: HEMOGLOBIN A1C 7.4 % (4.8-6.0)
[2016-09-05] MEDS: VANCOMYCIN 1 GM/NS 1 GM/250 ML IVPB IV SCH (15:36)
--- NOTE | 2016-09-05 16:14 | PROGRESS NOTE ---
DATE: 09/05/2016 SUBJECTIVE: Patient is sitting on the bed. No complaints at this time. She is not talkative. OBJECTIVE: Vital Signs: Temperature 97.5 degrees, heart rate 87, respiratory rate 20, blood pressure 117/70, and O2 saturation 97% on room air. General Examination: This is a 41-year-old male, lying in bed in no acute distress. HEENT: Head is normocephalic, atraumatic. Anicteric sclerae and pale conjunctivae. Mucous membranes moist. Neck: Supple. No JVD noted. No carotid bruits. No lymphadenopathy. No thyromegaly. Cardiovascular Examination: S1, S2 heard. No murmurs, gallops, or rubs. Regular rate and rhythm. Respiratory Examination: Clear bilaterally to auscultation. No work of breathing or using accessory muscles. Abdomen: Soft, nontender to palpation. Bowel sounds present. No organomegaly. Extremities: Right below-the- knee amputation noted with dressing in place. Dry and clean. Neurological exam: Patient alert and oriented x3. Able to move 4 extremities. Cranial nerves 2-12 are grossly normal. LABORATORY DATA: None. ASSESSMENT AND PLAN: 1. Methicillin-resistant Staphylococcus aureus infection of the right lfmzx-sgk-udlm amputation. Dr. Ro, his primary doctor, is following this patient and taking care of this condition. 2. End-stage renal disease on hemodialysis. Dr. Montero is following this patient. 3. Uncontrolled diabetes mellitus type 2. Just to have this patient on basal insulin, we have started Lantus yesterday, but the glucose is still going really up during the first hours of the morning. The patient is so I think we are going to keep this patient on this medication. Will keep checking Accu-Chek's before meals and also at bedtime. 4. Hypertension. That condition was well controlled. 5. Anemia of chronic disease. The hemoglobin and hematocrit are stable. 6. Severe protein calorie malnutrition. We will continue with Julita pimentel. cc: Jewel Walden MD
[2016-09-05] MEDS: DILAUDID ONE ×3 (16:48→17:43)
[2016-09-05] MEDS ORDERED: MORPHINE ONE (17:12)
[2016-09-05] MEDS ORDERED: DIPRIVAN 1% 0 MG/0 ML BOTTLE ONE (17:13)
[2016-09-05] MEDS ORDERED: DIPRIVAN 1% ONE (17:13)
[2016-09-05] MEDS ORDERED: ANESTHESIA PB SET 88 IN 5742 ONE (17:43)
[2016-09-05] MEDS ORDERED: XYLOCAINE-MPF 2% ONE (17:43)
[2016-09-05] MEDS ORDERED: LR 1,000 ML ONE (17:43)
[2016-09-05] MEDS ORDERED: 1/2 NS 500 ML ONE (17:43)
[2016-09-05] MEDS ORDERED: EXTENSION SET 32 IN 4522 ONE (17:43)
--- NOTE | 2016-09-05 19:28 | OPERATIVE NOTE ---
PROCEDURE DATE: 09/05/2016 PROCEDURE PERFORMED: Right above knee amputation. SURGEON: Daniel Ro MD RAILWAY TRACTION LINE WORKER: Iram Saenz RN PREOPERATIVE DIAGNOSIS: Infected right above-knee stump. POSTOPERATIVE DIAGNOSIS: Infected right above-knee stump. INDICATIONS: This is a 41-year-old, who has a left BK amputee, right BK amputee , but now with an infected right BK stump. Recent debridement revealed the muscle to be necrotic and nonviable. DESCRIPTION OF PROCEDURE: Satisfactory general anesthesia was achieved. The stump was left wrapped. The right thigh was prepped and draped in a sterile fashion. We marked the skin in an elliptical fashion and then incised the skin into the subcutaneous tissue. We used electrocautery to go through the muscle groups. When we encountered small vessels, we clamped and divided them and ligated them with 3-0 or 2-0 silk ties. We dissected down to the femoral artery, clamped and divided it and ligated with a 2-0 silk tie, the same for the femoral vein. The tibial nerve was identified and ligated with two 3-0 Polysorb free ties and transected. After we completely divided the muscle groups, we came to the femur. We then raised the periosteum off the femur and transected the femur with a Gigli saw. We handed off the knee and BK stump. We filed off the end of the bone. We then copiously irrigated the stump. We approximated the muscle groups with 0 Polysorb stitches. We approximated the subcutaneous tissue with 3-0 Polysorb stitches and the skin was approximated with polina. Xeroform, sterile 4 x 4s, sterile Kerlix, and then the 4 inch Marcos was applied. He tolerated it well. Was sent to the recovery room in satisfactory condition. cc: MD Jewel An MD [facility]
[2016-09-05] MEDS: NORCO-10 PO PRN (22:05)
[2016-09-06] MEDS: NORCO-10 PO PRN ×4 (02:06→21:55)
[2016-09-06] MEDS: HUMULIN R SUBQ SCH ×6 (04:27→23:41)
[2016-09-06] MEDS: SODIUM CHLORIDE 0.9% INJ SCH (05:21)
[2016-09-06] MEDS: PROTONIX IV SCH ×2 (05:21→06:11)
[2016-09-06 06:50] LABS: BASO% 0.4 % (0.0-0.8); EOS# 0.17 X1000 (0.0-0.7); EOS% 1.5 % (0.0-10.0); HEMATOCRIT 26.4 % (42.0-52.0); HEMOGLOBIN 7.8 g/dL (14.0-18.0); LYMPH# 1.83 X1000 (1.2-3.4); LYMPH% 16.4 % (20.5-51.1); MANUAL DIFF NEEDED? NO; MCHC 29.5 g/dL (33-37); MCV 98.1 FL (81-99); MONO# 1.34 X1000 (0.11-0.59); MPV 8.6 FL (7.4-10.4); NEUT% 69.7 % (42.2-75.2); PLT 571 X1000 (130-400); RBC 2.69 XMIL (4.7-6.1)
[2016-09-06] MEDS ORDERED: NS 2,000 ML MISC PRN (07:21)
[2016-09-06] MEDS ORDERED: EPOGEN SUBQ ONE (07:43)
[2016-09-06] MEDS: PERIDEX MT SCH ×2 (08:53→23:32)
[2016-09-06] MEDS ORDERED: NS 2,000 ML ONE (08:56)
[2016-09-06] MEDS ORDERED: HEPARIN ONE (08:56)
--- NOTE | 2016-09-06 10:34 | PROGRESS NOTE ---
DATE: 09/06/2016 SUBJECTIVE: Mr. Womack is about to go to dialysis. States that he feels pretty good since his surgery yesterday. He has no complaints. OBJECTIVE: Vital Signs: Temperature 98.6 degrees, heart rate 95, respiratory rate 17, blood pressure 142/73, O2 saturation 100% on nasal cannula 2 L. General: Mr. Womack is a 41-year-old, ill-appearing male in no acute distress. Able to answer questions appropriately. Cardiovascular: S1, S2. Regular rate and rhythm. No rubs, gallops, murmurs. Pulmonary: Clear to auscultate bilateral breath sounds. No accessory muscle use or work of breathing noted. GI: Soft, nontender, nondistended. Positive bowel sounds x4. Extremities: Left below the knee amputation site intact and warm. Right new above the knee amputation with Marcos wrap. No drainage noted. Right upper extremity AV graft with positive thrill and bruit, and +2 radial pulses. Skin: Warm, dry, intact except for the left hand middle finger has some necrotic areas on it that appear to be on the skin. Otherwise, the hand is warm. Laboratory Data: White blood cells 11,000, hemoglobin 7.8, hematocrit 26.4, platelet count 571,000. Glucose 92. ASSESSMENT/PLAN: 1. Methicillin-resistant Staphylococcus aureus of the right vzvdc-oxm-uxvs amputation, now status post right tyjlj-ppm-hqwp amputation, postoperative day 1, by Dr. Ro who is following and caring for this patient's condition. He does have an elevated white count of 11,000 but he is afebrile and will be continued on vancomycin. 2. End-stage renal disease. Continue hemodialysis. 3. Uncontrolled diabetes mellitus type 2. Continue current regimen. 4. Hypertension, controlled. 5. Anemia of chronic disease mixed with acute blood loss anemia secondary to surgery. He will continue with epoetin injections per nephrology. 6. Severe protein calorie malnutrition. Continue with current diet regimen and Nepro shakes. Dictated by MEGAN Mcpherson for Jewel Walden MD cc: MEGAN Mcpherson MD
[2016-09-06] MEDS: DILAUDID ONE ×2 (10:38→10:39)
--- NOTE | 2016-09-06 11:26 | PROGRESS NOTE ---
DATE: 09/06/2016 SUBJECTIVE: Patient is sitting up in bed eating breakfast. He underwent revision of his right BKA yesterday. He now has a right AKA. No issues during surgery or afterward. OBJECTIVE: Vital Signs: Temperature 98.8 degrees, pulse 82, respiratory rate 16, blood pressure 171/82. Intake and output: Intake 1.2 L. Output 550 mL. General: This is a chronically ill- appearing, middle-aged gentleman, sitting up in bed. He is awake and alert. He is asking for some assistance in repositioning. HEENT: Normocephalic, atraumatic. Oral mucosa moist. Dentition poor. ALAN. Neck: Supple. Trachea midline. There is no JVD. Cardiovascular: Regular rate and rhythm. Systolic murmur noted. Pulmonary: He is clear bilaterally with equal excursion with no increased work of breathing. Abdomen: Flat, soft. Positive bowel sounds. PEG tube noted. : Not inspected. Minimal void with hemodialysis assist. Extremities: Right AKA knee with an Marcos bandage noted. There is no bleeding noted to the bandage. Left BKA. No edema. Moving his upper extremities without difficulty. Integumentary: He has some small areas of vascular necrosis noted to the finger tips. LAB DATA: WBC of 11.1, hemoglobin 7.6. Potassium yesterday 5.5. ASSESSMENT AND PLAN: 1. End-stage renal disease management. He is on a Sunday, Sunday, Sunday schedule. We will plan to dialyze him today as per his routine. We will dialyze him on a 2 K bath/UF to dry weight or as tolerated, 4 hour treatment. We will hold heparin during dialysis secondary to his new AKA. 2. Anemia. He did undergo revision of his right BKA this is not entirely unexpected. We will add his EPO today. 3. Electrolytes, acid-base balance. See #1 for plan. 4. Hypertension, acceptable. He has not had this morning medicines. 5. Fluid volume. We will adjust with dialysis. 6. Dialysis access. He had infiltration on his last dialysis. Anticipate that we will need to use this catheter again today. Seen, data reviewed, discussed with Fahad Feldman on 09/06/16. I agree with the above assessment and plan of care. rg Dictated by MEGAN Todd for Xander Montero MD cc: MD Jewel Kerr MD [facility]
[2016-09-06] MEDS: VANCOMYCIN 1 GM/NS 1 GM/250 ML IVPB IV SCH (13:58)
[2016-09-06] MEDS ORDERED: NS 500 ML ONE (15:52)
[2016-09-06] MEDS: LANTUS SUBQ SCH (16:38)
--- NOTE | 2016-09-06 19:33 | ECHO REPORT ---
ORDER DATE: 09/06/2016 INTERPRETING PHYSICIAN: Dr. Toscano PHYSICIAN: Patient of Dr. Ro. CLINICAL INDICATIONS: Hypertension, congestive heart failure, MRSA. M-MODE MEASUREMENTS: Right ventricle: 2.6 cm. Left ventricle end diastole: 4.2 cm. Left ventricle end systole: 3.1 cm. Posterior wall: 1.0 cm. Interventricular septum: 1.0 cm. Left atrium: 3.5 cm. Aortic root: 3.6 cm. SUMMARY OF 2-DIMENSIONAL IMAGING: Left ventricular function is normal, ejection fraction of 60%. There is no LVH. The chamber is mild to moderately enlarged. Right ventricle appears to be normal. The aortic valve looks normal. Color flow mapping unremarkable. Mitral valve looks normal. Color flow mapping unremarkable. Pulse wave Doppler of mitral inflow is normal. Tissue Doppler of septal and lateral mitral annulus averages 11 cm. There is no diastolic dysfunction. The tricuspid valve looks normal. Color flow mapping unremarkable. The pulmonic valve looks normal. Color flow mapping unremarkable. Inferior vena cava is not dilated. There is no pulmonary hypertension. There is no pericardial effusion, masses, or thrombus. SUMMARY: Study showed: 1. Normal left ventricular systolic function. Moderately enlarged left ventricle. No wall motion abnormality is noted. 2. No diastolic dysfunction. 3. No evidence of any significant valvular abnormality. 4. Normal pulmonary pressure. Clinical correlation recommended. cc: MD Kaycee He CRNP Cesar Garcia-Rodriguez, MD
[2016-09-07] MEDS: NORCO-10 PO PRN ×2 (01:53→15:34)
[2016-09-07 06:23] LABS: HEMATOCRIT 27.1 % (42.0-52.0); HEMOGLOBIN 8.1 g/dL (14.0-18.0); MCH 29.1 PG (27-31); MCHC 29.9 g/dL (33-37); MCV 97.5 FL (81-99); MPV 8.3 FL (7.4-10.4); RBC 2.78 XMIL (4.7-6.1)
[2016-09-07 06:40] LABS: ALBUMIN 2.5 g/dL (3.5-5.0); CALCIUM 8.4 mg/dL (8.8-10.2); POTASSIUM 5.1 mmol/L (3.5-5.1)
[2016-09-07] MEDS: SODIUM CHLORIDE 0.9% INJ SCH (07:01)
[2016-09-07] MEDS: HUMULIN R SUBQ SCH ×6 (07:01→23:08)
[2016-09-07] MEDS: PROTONIX IV SCH (07:01)
[2016-09-07] MEDS: LANTUS SUBQ SCH (10:42)
[2016-09-07] MEDS: PERIDEX MT SCH ×2 (10:42→23:08)
--- NOTE | 2016-09-07 15:46 | PROGRESS NOTE ---
DATE: 09/07/2016 SUBJECTIVE: Patient is sitting up on the side of the bed. He has no complaints this afternoon. OBJECTIVE: Vital Signs: Temperature 98.2 degrees, pulse 82, respiratory rate 16, blood pressure 152/79. Intake 740 mL. Output 2.6 L on dialysis. General: Chronically ill- appearing, middle- aged gentleman sitting up on the side of the bed in no acute distress. He is awake, alert, and oriented. HEENT: Normocephalic, atraumatic. Oral mucosa moist. ALAN. Conjunctivae pink. Neck: Supple. Trachea midline. No JVD. Cardiovascular: Regular rate and rhythm, with a systolic murmur. Pulmonary: He has equal excursion. No increased work of breathing. He is clear to auscultation bilaterally. Abdomen: Flat, soft, with a PEG tube noted. Extremities: Right AKA with Marcos bandage. No drainage noted. Left BKA old incision site well healed. He is moving his upper extremities without difficulty. Integumentary: Areas of vascular necrosis noted of the fingertips. LABORATORY DATA: WBC of 8.8, hemoglobin 8.1, hematocrit 27.1, and platelet count of 554,000. Sodium 135, potassium 5.1, chloride 97, CO2 of 27, BUN 26, creatinine 1.9, and albumin 2.5. ASSESSMENT AND PLAN: 1. End-stage renal disease management. He is on a Sunday, Sunday, Sunday schedule. We will continue him on that prescription while he is in the hospital. Check laboratories in the morning. Adjust his dialysate bath as required. 2. Anemia. We restarted EPO. Hemoglobin has slowly improved. 3. Hypertension. Acceptable. 4. Fluid volume. Continue with dialysis. 5. Methicillin-resistant Staphylococcus aureus, right ywcst-tjmn-kwcrwrcbrh with now status post right hqfbm-etnz-snptprxmcn. Followed by Surgery. He is continuing on vancomycin after each dialysis treatment. Seen, data reviewed, discussed with Fahad Feldman on 09/08/15. I agree with the above assessment and plan of care. rg Dictated by MEGAN Todd for Xander Montero MD cc: MD Jewel Kerr MD [facility]
--- NOTE | 2016-09-07 17:19 | PROGRESS NOTE ---
DATE: 09/07/2016 SUBJECTIVE: Patient reports feeling fine. No complaints. He is not talkative today. OBJECTIVE: Vital Signs: Temperature 98.2 degrees, heart rate 87, respiratory rate 16, blood pressure 152/79, O2 saturation 96% on 2 L nasal cannula. General Examination: This is a 41-year- old, chronically ill appearing male in no acute distress. HEENT: Head is normocephalic and atraumatic. Anicteric sclerae and pale conjunctivae. Mucous membranes moist. Neck: Supple. No JVD noted. No carotid bruits. No lymphadenopathy. No thyromegaly. Cardiovascular: S1, S2 heard. No murmurs, gallops, or rubs. Regular rate and rhythm. Respiratory: Clear bilaterally to auscultation. No work of breathing or using accessory muscles. Abdomen: Soft, nontender to palpation. Bowel sounds present. No organomegaly. Extremities: Right dzpth-euz-wpjx amputation. Stump covered by dressing. Neurological: Patient alert and oriented x3. Able to move 4 extremities. LABORATORY DATA: Reviewed. ASSESSMENT AND PLAN: 1. MRSA infection of the right vgagd-zhc-plkz amputation, now is status post right uwzey-zbd-djzz amputation. Postoperatively day 2. Dr. Ro has been following this patient. The patient is doing fine. White cell from yesterday was 11,000, but now is back to normal, hemoglobin is 8.1. 2. End-stage renal disease on hemodialysis. Dr. Montero is following this patient. 3. Uncontrolled diabetes mellitus type 2. We will continue with the same management. 4. Anemia of chronic disease. Stable. 5. Severe protein calorie malnutrition. Stable. cc: Jewel Walden MD
[2016-09-07] MEDS: BUPRENEX IV PRN (19:24)
[2016-09-08] MEDS: NORCO-10 PO PRN (02:13)
[2016-09-08] MEDS: HUMULIN R SUBQ SCH ×3 (06:01→17:30)
[2016-09-08] MEDS: SODIUM CHLORIDE 0.9% INJ SCH (06:02)
[2016-09-08] MEDS: PROTONIX IV SCH (06:02)
[2016-09-08 06:38] LABS: HEMATOCRIT 25.9 % (42.0-52.0); HEMOGLOBIN 7.9 g/dL (14.0-18.0); MCH 29.5 PG (27-31); MCHC 30.5 g/dL (33-37); MCV 96.6 FL (81-99); MPV 8.5 FL (7.4-10.4); RBC 2.68 XMIL (4.7-6.1)
[2016-09-08 06:50] LABS: ALBUMIN 2.7 g/dL (3.5-5.0); CALCIUM 8.9 mg/dL (8.8-10.2); POTASSIUM 5.7 mmol/L (3.5-5.1)
[2016-09-08] MEDS ORDERED: NS 2,000 ML MISC PRN (06:59)
[2016-09-08] MEDS ORDERED: HEPARIN IV PRN (06:59)
[2016-09-08] MEDS ORDERED: TIGHT: 0.2 ML/HR MISC PRN (06:59)
[2016-09-08] MEDS ORDERED: EPOGEN SUBQ ONE (09:28)
[2016-09-08] MEDS ORDERED: LANTUS SUBQ ONE (09:31)
[2016-09-08] MEDS ORDERED: LANTUS SUBQ SCH (09:32)
[2016-09-08] MEDS ORDERED: NS 2,000 ML ONE (11:41)
[2016-09-08] MEDS: PERIDEX MT SCH (12:45)
--- NOTE | 2016-09-08 13:52 | PROGRESS NOTE ---
DATE: 09/08/2016 SUBJECTIVE: He is sitting up on dialysis eating breakfast. He states he anticipates discharge today. OBJECTIVE: Vital Signs: Blood pressure 155/81, heart rate 88, respirations 18, and afebrile. General: He is in no distress. Skin: Warm and dry. Neck: The neck veins are not distended. Heart: Regular with an S4. Lungs: Equal. No crackles. Abdomen: Soft. Nontender. Bowel sounds are present. Extremities: No edema. LABORATORY DATA: Sodium 133. Potassium 5.7. Chloride 94. Bicarbonate 26. BUN 42. Creatinine 2.4. ASSESSMENT AND PLAN: 1. End-stage kidney disease. Continue his routine dialysis today. 2. Electrolytes: Modest hyperkalemia that will be addressed with dialysis. Acid base and target. 3. Anemia. Moderately severe. Postop. We will dose with erythropoietin. cc: MD Jewel Kerr MD
--- NOTE | 2016-09-08 14:04 | PROGRESS NOTE ---
DATE: 09/08/2016 SUBJECTIVE: Patient reports feeling fine. No complaints. He is not talkative today. OBJECTIVE: Vital Signs: Temperature 98.2 degrees, heart rate 80, respiratory rate 18, blood pressure 155/81, O2 saturation 100% 2 L nasal cannula. General Examination: These is a 41-year- old male chronically ill appearing in no acute distress. HEENT: Head is normocephalic, atraumatic. Anicteric sclerae and pale conjunctivae. Mucous membranes moist. Neck: Supple. No JVD noted. No carotid bruits. No lymphadenopathy. No thyromegaly. Cardiovascular Examination: S1, S2 heard. No murmurs, gallops, or rubs. Regular rate and rhythm. Respiratory: Clear bilaterally to auscultation. No work of breathing or using accessory muscles. Abdomen: Soft, nontender to palpation. Bowel sounds present. No organomegaly. Extremities: Right upper knee amputation stump covered by dressing. Neurological: Patient alert and oriented x3. Moves 4 extremities. LABORATORY DATA: Reviewed. ASSESSMENT AND PLAN: 1. Methicillin-resistant Staphylococcus aureus infection of the right ybncl-iam-aliu amputation. Postop day #3. Dr. Ro following this patient. The white cell count is back to normal. 2. Will continue with antibiotic. Dr. Obregon is following this patient. 3. End-stage renal disease on hemodialysis. Patient supposed to have hemodialysis today. Dr. Montero involved in his care. 4. Uncontrolled diabetes mellitus type 2. Today he has received 12 units of Lantus and the glucose is still high so we are going to increase it to 18 and will see what happens. 5. Anemia chronic disease stable. 6. Severe protein calorie malnutrition stable. cc: Jewel Walden MD
[2016-09-08 17:47] VITALS: BP 133/79
--- NOTE | 2016-09-22 20:02 | DISCHARGE SUMMARY ---
ADMISSION DATE: 08/31/2016 DISCHARGE DATE: 09/08/2016 PRIMARY DISCHARGE DIAGNOSIS: Ischemic necrosis of right below-knee stump. OTHER DIAGNOSES: 1. Severe peripheral vascular disease. 2. Chronic kidney disease stage 5. 3. Multiple sclerosis. 4. History of cerebrovascular accident. HOSPITAL COURSE: This gentleman was post BK amputation but presented with nonhealing of his stump and purulent drainage. We admitted him on 08/31/2016. We debrided his stump on 08/31/2016. It became evident that the tissue was nonviable and extensive, so it was felt he would require an AK amputation. He was maintained on vancomycin postop. We discussed converting him to an AK and in fact did that on 09/05/2016. He continued to improve. Postop his wound looked good. There was no rehab bed available for Mr. Womack, so he had to be discharged home on 09/08/2016. He will return to the office in 3 weeks for reevaluation. He will continue his usual preoperative medications. I am pleased with his progress. cc: MD Jewel An MD
== END 2016-09-08 18:00 | disposition home health service (06) ==
LOC: EDSTATUS 12:30 → SURHOLD 13:46 → 4N 15:26
PROVIDERS: ADMIT Internal Medicine; ATTEND Surgery